=== PATIENT | male | born 1995 | race Caucasian/White ===

== ENCOUNTER 2017-02-13 17:39 | Emergency (ER) | payer OTHER ==
[2017-02-13 17:47] VITALS: BP 145/95; PULSE 99; RESP 18; O2SAT 97
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
[2017-02-13 21:20] VITALS: BP 130/74; PULSE 89; RESP 18; O2SAT 96
== END 2017-02-13 21:23 | disposition home or self-care (01) ==
LOC: SED 17:39
DX: S16.1XXA Strain of muscle, fascia and tendon at neck level, initial encounter (principal); V43.52XA Car driver injured in collision with other type car in traffic accident, initial encounter; Y93.89 Activity, other specified; Y92.411 Interstate highway as the place of occurrence of the external cause; Y99.8 Other external cause status; F31.9 Bipolar disorder, unspecified; Z98.890 Other specified postprocedural states